=== PATIENT | female | born 1960 | race Caucasian/White ===

== ENCOUNTER 2017-09-29 21:13 | Emergency (ER) | payer OTHER ==
[2017-09-29 21:39] VITALS: BP 153/93
--- NOTE | 2017-09-29 22:13 | EDM.PDOC ---
ED HPI GENERAL MEDICAL PROBLEM - General Chief Complaint: Fever Stated Complaint: FLU SYMPTOMS Time Seen by Provider: 09/29/17 21:49 Source of Information: Reports: Patient History Limitations: Reports: No Limitations - History of Present Illness INITIAL COMMENTS - FREE TEXT/NARRATIVE: 57-year-old female presents for evaluation and treatment of flulike symptoms. Patient reports that her symptoms started on with a scratchy throat. She states Sunday she developed a cough. This morning she developed body aches and had a fever. Reports her temperature at home tonight around 1800 was 102.5. She has not been taking any [id number] medications today. She did take some Aleve for her headaches and body aches yesterday. Current headaches include a dry nonproductive cough, headaches, body aches, fatigue and malaise. She denies any sore throat, ear pain, nausea, vomiting, abdominal pain or diarrhea. She did not get a flu shot this season. She reports she is on medications for high blood pressure. Primary care provider is negative with. Duration: Day(s): (2) Generalized Pain Score (Numeric/FACES): 5 - Related Data Allergies Allergy/AdvReac Type Severity Reaction Status Date / Time No Known Allergies Allergy Verified 09/29/17 21:39 Home Meds: Home Meds Metoprolol Tartrate [Lopressor] 25 mg PO Q12HR 06/02/16 [History] Codeine/Promethazine [Phenergan with Codeine] 5 ml PO Q4HR PRN #120 ml 09/29/17 [Rx] Oseltamivir [Tamiflu] 75 mg PO BID #10 cap 09/29/17 [Rx] Past Medical History Cardiovascular History: Reports: Hypertension - Past Surgical History Female Surgical History: Reports: Tubal Ligation Social & Family History - Family History Family Medical History: Noncontributory - Tobacco Use Smoking Status *Q: Never Smoker - Recreational Drug Use Recreational Drug Use: No ED ROS GENERAL - Review of Systems Review Of Systems: See Below Constitutional: Reports: Fever, Chills, Other (reports bodyaches) HEENT: Denies: Ear Pain, Throat Pain Respiratory: Reports: Cough GI/Abdominal: Denies: Abdominal Pain, Diarrhea, Nausea, Vomiting Neurological: Reports: Headache ED EXAM, GENERAL - Physical Exam Exam: See Below Exam Limited By: No Limitations General Appearance: Alert, WD/WN, No Apparent Distress, Obese Eye Exam: Bilateral Eye: Normal Inspection Ears: Normal External Exam, Normal Canal, Hearing Grossly Normal, Normal TMs Nose: Normal Inspection Throat/Mouth: Normal Inspection, Normal Lips, Normal Voice, No Airway Compromise Respiratory/Chest: No Respiratory Distress, Lungs Clear, Normal Breath Sounds Cardiovascular: Normal Peripheral Pulses, Regular Rate, Rhythm, No Murmur GI/Abdominal: Soft, Non-Tender Neurological: Alert, Oriented, Normal Cognition Psychiatric: Normal Affect, Normal Mood Skin Exam: Normal Color, Diaphoretic, Increased Warmth Course - Vital Signs Last Recorded V/S: Last Vital Signs Temp 37.9 C 09/29/17 21:35 Pulse 97 09/29/17 21:35 Resp 16 09/29/17 21:35 BP 153/93 H 09/29/17 21:35 Pulse Ox 96 09/29/17 21:35 - Orders/Labs/Meds Meds: Medications Discontinued Medications Generic Name Dose Route Start Last Admin Trade Name Freq PRN Reason Stop Dose Admin Ibuprofen 600 mg 09/29/17 22:38 09/29/17 22:46 Motrin PO 09/29/17 22:39 600 mg ONETIME ONE Administration - Re-Assessments/Exams Free Text/Narrative Re-Assessment/Exam: 09/29/17 22:42 Patient is positive for influenza type B. Offered Tamiflu. Discussed risks and benefits. Educated on side effects of upset stomach, nausea, vomiting and diarrhea. She would like to start Tamiflu. Her is present in the ER he would also like to start Tamiflu, prophylactically. Discharge instructions as documented. Departure - Departure Time of Disposition: 22:44 Disposition: Home, Self-Care 01 Condition: Fair Clinical Impression: Influenza B - Discharge Information Prescriptions: Codeine/Promethazine [Phenergan with Codeine] 5 ml PO Q4HR PRN #120 ml PRN Reason: Cough Oseltamivir [Tamiflu] 75 mg PO BID #10 cap Instructions: Influenza, Adult, [id number] Referrals: Lary Veronica [employer] [Primary Care Provider] - Forms: ED Department Discharge, ED Return to Work/School Form Additional Instructions: Take the Tamiflu as prescribed. 1 Twice a day for 5 days. Cough syrup with codeine 5 mils every 4-6 hours as needed for cough. Codeine is habit-forming, take as little as needed to control your cough. Do not drive or operate machinery within 12 hours of taking codeine. [id number] Tylenol and Motrin as needed for headache and fever relief. Rest. Make sure you are drinking plenty of fluids. Recommend off work 1 week. Follow up with Lary Pugh if your symptoms are not improving in 1-2 weeks. Please return to the ER if your symptoms change or worsen.
[2017-09-29] MEDS ORDERED: Ibuprofen 600 MG Tab PO ONE (22:38)
== END 2017-09-29 22:55 | disposition home or self-care (01) ==
LOC: JD.ED 21:13
DX: J10.1 Influenza due to other identified influenza virus with other respiratory manifestations (principal); I10 Essential (primary) hypertension; Z79.899 Other long term (current) drug therapy
CPT/HCPCS: 87804; 99283; A9270

== ENCOUNTER 2023-12-21 07:23 | Emergency (ER) | payer OTHER ==
[2023-12-21] MEDS: Sodium Chloride 0.9% 10 ML Syringe FLUSH PRN (08:21)
[2023-12-21 08:22] LABS: BASOPHILS ABSOLUTE AUTO 0.1 K/mm3 (0.0-0.2); BASOPHILS PERCENT AUTO 0.8 % (0.0-1.0); EOSINOPHILS ABSOLUTE AUTO 0.1 K/mm3 (0.0-0.4); HEMATOCRIT 43.3 % (37.0-47.0); IMMATURE GRAN ABSOLUTE AUTO 0.03 K/mm3 (0.00-0.05); IMMATURE GRAN PERCENT AUTO 0.4 % (0.0-0.4); LYMPHOCYTES ABSOLUTE AUTO 0.9 K/mm3 (1.0-4.8); LYMPHOCYTES PERCENT AUTO 13.1 % (24.0-44.0); MEAN CORPUSCULAR HGB CONC 32.3 g/dl (32.0-36.0); MEAN CORPUSCULAR VOLUME 89.8 fl (83.0-99.0); MEAN PLATELET VOLUME 9.6 fl (9.4-12.3); MONOCYTES ABSOLUTE AUTO 0.3 K/mm3 (0.0-0.8); MONOCYTES PERCENT AUTO 4.6 % (0.0-8.0); NEUTROPHILS ABSOLUTE AUTO 5.7 K/mm3 (1.8-7.7); NEUTROPHILS PERCENT AUTO 80.1 % (41.0-71.0); PLATELET COUNT,PLT 263 K/mm3 (150-400); RED BLOOD CELL COUNT 4.82 M/mm3 (4.10-5.30); WHITE BLOOD CELL COUNT,WBC 7.15 K/mm3 (3.9-11.3)
[2023-12-21 08:46] LABS: A/G RATIO 1.1 (1-2); ALBUMIN 4.1 g/dl (3.4-5.0); ANION GAP 17.5 (5-15); BILIRUBIN TOTAL 0.2 mg/dL (0.2-1.0); CALCIUM 9.6 mg/dL (8.5-10.1); EST CRCL DRUG DOSING (CG) 46.72 mL/min; MAGNESIUM 1.8 mg/dL (1.8-2.4); PROTEIN TOTAL,TP 7.9 g/dl (6.4-8.2)
[2023-12-21 08:47] LABS: POTASSIUM,K 4.5 mEq/L (3.5-5.1)
[2023-12-21] MEDS: Sodium Chloride 0.9% 1,000 ML IV ONE (09:11)
[2023-12-21 09:23] LABS: APPEARANCE,URINE CLEAR (Clear); BILIRUBIN,URINE NEGATIVE (Negative); COLOR,URINE YELLOW (Yellow); GLUCOSE,URINE NEGATIVE (Negative); KETONES,URINE NEGATIVE (Negative); LEUKOCYTE ESTERASE,URINE TRACE (Negative); NITRITE,URINE NEGATIVE (Negative); OCCULT BLOOD,URINE NEGATIVE (Negative); PROTEIN,URINE NEGATIVE (Negative); UROBILINOGEN,URINE 0.2 (0.2-1.0)
[2023-12-21 09:34] LABS: BACTERIA,URINE FEW /hpf (FEW); EPITHELIAL CELLS,URINE 0-5 /hpf (0-5); MUCUS,URINE FEW /hpf (FEW); RBC,URINE 0-5 /hpf (0-5)
[2023-12-21 10:28] LABS: TSH 1.687 uIU/mL (0.358-3.74)
[2023-12-21 10:45] VITALS: BP 139/71; PULSE 97
== END 2023-12-21 10:32 | disposition home or self-care (01) ==
LOC: JD.ED 07:23
DX: I47.19 Other supraventricular tachycardia (principal); I10 Essential (primary) hypertension; Z79.899 Other long term (current) drug therapy
CPT/HCPCS: 36415; 71046; 80053; 81001; 81003; 83735; 84439; 84443; 84484; 85025; 87086; 93005; 93246; 99285; J3490; J7030; 93010; 99282